=== PATIENT | male | born 1965 ===

== ENCOUNTER 2023-07-30 22:38 | Emergency (ER) | payer MEDICAID ==
[~2023-07-30] VITALS: Ht 165.1 cm; Wt 78.0 kg
[2023-07-30 22:50] VITALS: BP 144/86; PULSE 88; RESP 17; TEMP 98.2
== END 2023-07-31 00:13 | disposition home or self-care (01) ==
LOC: EMS 22:42
DX: S01.531A Puncture wound without foreign body of lip, initial encounter (principal); F10.20 Alcohol dependence, uncomplicated; E11.9 Type 2 diabetes mellitus without complications; E78.00 Pure hypercholesterolemia, unspecified; I10 Essential (primary) hypertension; F17.210 Nicotine dependence, cigarettes, uncomplicated; W26.8XXA Contact with other sharp object(s), not elsewhere classified, initial encounter; Y93.89 Activity, other specified; Y92.89 Other specified places as the place of occurrence of the external cause; Y99.8 Other external cause status; Y90.9 Presence of alcohol in blood, level not specified
CPT/HCPCS: 99281; Z7502